=== PATIENT | female | born 1965 | race Caucasian/White ===

== ENCOUNTER 2017-01-06 19:32 | Emergency (ER) | payer MEDICARE, OTHER ==
[~2017-01-06 19:32] MED LIST: ALBUTEROL17 GM INH; ALDACTAZIDE 25/1 TAB PO; AMOXICILLIN PO; B/P MED; BACLOFEN10 MG PO; BACTRIM DS TABL1 TAB PO; CIPRO PO; HCTZ PO; HYDROCHLOROTH12.5 M1 PO; HYDROCODON-ACE1 EAC5 PO; IBUPROFEN PO; INHALER; LISINOPRIL PO; LORTAB 101 TAB 10/5 PO; LORTAB 7.5-5001 TAB PO; MELOXICAM15 MG PO; RESTORIL15 MG PO; VIBRAMYCIN100 M1 PO; VICODIN 5/500 T1 TAB PO; WALGREENS PHARMACY; XANAX0.5 M1 PO; [UNRECOGNIZED DRUG - CODE]
[2017-05-01] MEDS ORDERED: ZESTRIL10 M1 PO (09:26)
[2017-05-01] MEDS ORDERED: HYDROCHLOROTHIA25 MG PO (09:49)
[2017-05-01] MEDS ORDERED: ALPRAZOLAM0.25 MG PO (09:50)
== END 2017-01-06 20:27 | disposition home or self-care (01) ==
LOC: SED 19:32
DX: M25.562 Pain in left knee (principal); I10 Essential (primary) hypertension; J45.909 Unspecified asthma, uncomplicated; F17.210 Nicotine dependence, cigarettes, uncomplicated; Z79.899 Other long term (current) drug therapy
CPT/HCPCS: 29530; 99283